=== PATIENT | male | born 1985 | race African-American/Black ===

== ENCOUNTER 2017-10-25 13:15 | Emergency (ER) | payer OTHER ==
[2017-10-25 14:58] LABS: Bilirubin Negative (Negative); Blood, Urine Negative (Negative); Clarity CLEAR (Clear); Glucose, Urine (Dipstick) Negative (Negative); Leukocyte Negative (Negative); Nitrite Negative (Negative); Protein, Urine (Dipstick) 100 mg/dL (Neg-Trace); Specific Gravity, Urine 1.016 (1.002-1.036)
[2017-10-25 15:00] LABS: Bacteria/HPF None Seen HPF (None Seen); Hyaline Casts/LPF 0-3 HYALINE CAST LPF (0-3 Hyaline); Pathc Cast-AUWi Flag 0.29 (0-2.49); RBC/HPF 0-3 HPF (0-3); Squamous Epithelial 0-3 HPF (0-3); WBC/HPF 0-3 HPF (0-3)
[2017-10-25 15:02] LABS: #Eosinphils 0.2 thou/uL (0.0-0.7); #Lymphocytes 3.3 thou/uL (1.20-3.40); #Monocytes 0.5 thou/uL (0.11-0.59); #Neutrophils 3.9 thou/uL (1.40-6.50); %Basophils 0.4 % (0.0-1.0); %Eosinophils 2.7 % (0.0-10.0); %Monocytes 6.5 % (0.0-10.0); %Neutrophils 49.5 % (42.0-75.0); Hemoglobin 14.7 g/dL (14.0-18.0); Mean Corpuscular Hemoglobin 22.7 pg (27.0-31.0); Mean Corpuscular Volume 68.7 fL (78.0-98.0); Mean Platelet Volume 9.5 fL (7.4-10.4); Platelet Count 306 thou/uL (130-400); Red Blood Cell (RBC) Count 6.48 mill/uL (4.70-6.10)
[2017-10-25 15:13] LABS: ALT (SGPT) 24 U/L (8-55); AST (SGOT) 18 U/L (5-34); Albumin 4.6 g/dL (3.5-5.0); Alkaline Phosphatase 68 U/L (40-150); Anion Gap 13 mmol/L (10-20); BUN (Urea Nitrogen) 11 mg/dL (8.9-20.6); Bilirubin, Total 0.6 mg/dL (0.2-1.2); Calc. Creatinine Clearance 0 mL/min (70-130); Calcium 9.8 mg/dL (7.8-10.44); Carbon Dioxide 27 mmol/L (22-29); Chloride 106 mmol/L (98-107); Estimated GFR-MDRD Greater than 90; Globulin 3.8 g/dL (2.4-3.5); Glucose 95 mg/dL (70-105); Potassium 4.3 mmol/L (3.5-5.1); Protein, Total 8.4 g/dL (6.0-8.3); Sodium 142 mmol/L (136-145)
--- NOTE | 2017-10-25 16:14 | CT ---
CT ABDOMEN AND PELVIS WITHOUT CONTRAST: 10/25/2017 PROVIDED CLINICAL HISTORY: Flank pain. COMPARISON: 08/01/2010 FINDINGS: The visualized lung bases are free of significant opacity. No evidence for urinary tract calculi or hydronephrosis. The solid abdominal organs are suboptimally evaluated in the absence of IV contrast material but demonstrate an unremarkable unenhanced CT appearance. No bowel dilatation, inflammatory fat stranding, free fluid, or free air apparent. The osseous structures demonstrate no concerning l ytic or blastic lesions. IMPRESSION: No evidence for urinary tract calculi or hydronephrosis. POS: [facility]
[2017-10-25] MEDS ORDERED: Ketorolac Tromethamine 30 MG/ML VIAL ONE (16:46)
== END 2017-10-25 17:05 | disposition home or self-care (01) ==
LOC: ERS 13:15
DX: R10.9 Unspecified abdominal pain (principal); F17.210 Nicotine dependence, cigarettes, uncomplicated; Z71.6 Tobacco abuse counseling
CPT/HCPCS: 74176; 80053; 81003; 81015; 83690; 85025; 96374; J1885

== ENCOUNTER 2018-11-22 13:43 | Emergency (ER) | payer OTHER ==
[2018-11-22] MEDS ORDERED: Dexamethasone 10 MG/ML VIAL ONE (15:45)
== END 2018-11-22 15:50 | disposition home or self-care (01) ==
LOC: ERS 13:43
DX: J02.9 Acute pharyngitis, unspecified (principal); F17.210 Nicotine dependence, cigarettes, uncomplicated
CPT/HCPCS: 87081; 87430; 99283; J1100

== ENCOUNTER 2019-11-24 17:09 | Emergency (ER) | payer OTHER ==
--- NOTE | 2019-11-24 18:36 | RAD ---
LEFT KNEE FOUR VIEWS: 11/24/19 HISTORY: Left knee pain. There is no signs of fracture, dislocation, or joint effusion. IMPRESSION: No acute injury. No evidence of any significant arthritic change. POS: GET
== END 2019-11-24 18:56 | disposition home or self-care (01) ==
LOC: ERS 17:09
DX: M25.562 Pain in left knee (principal); F17.210 Nicotine dependence, cigarettes, uncomplicated

== ENCOUNTER 2020-07-16 15:32 | Emergency (ER) | payer OTHER | END 2020-07-16 16:55 | disposition home or self-care (01) | LOC: ERS 15:32 | DX: M25.512 Pain in left shoulder (principal); F17.210 Nicotine dependence, cigarettes, uncomplicated ==

== ENCOUNTER 2022-04-24 16:28 | Emergency (ER) | payer OTHER ==
[2022-04-24] MEDS ORDERED: Ketorolac Tromethamine 30 MG/ML VIAL ONE (18:52)
[2022-04-24] MEDS ORDERED: HYDROcodone/Acetaminophen 10/325 mg Tablet ONE (18:52)
== END 2022-04-24 19:20 | disposition home or self-care (01) ==
LOC: ERS 16:28
DX: S02.5XXA Fracture of tooth (traumatic), initial encounter for closed fracture (principal); I10 Essential (primary) hypertension; F17.210 Nicotine dependence, cigarettes, uncomplicated; V80.010A Animal-rider injured by fall from or being thrown from horse in noncollision accident, initial encounter
CPT/HCPCS: 96372; 99283; J1885